=== PATIENT | female | born 1975 | race Caucasian/White ===

== ENCOUNTER 2016-03-22 12:50 | Outpatient (CLI) | payer BC | END 2016-03-22 12:51 | disposition home or self-care (01) | DX: R53.83 Other fatigue (principal); E10.65 Type 1 diabetes mellitus with hyperglycemia ==

== ENCOUNTER 2016-06-07 19:11 | Outpatient (CLI) | payer BC | END 2016-06-07 19:12 | disposition home or self-care (01) | DX: R10.2 Pelvic and perineal pain (principal) ==

== ENCOUNTER 2016-06-21 08:54 | Outpatient (CLI) | payer BC | END 2016-06-21 08:55 | disposition home or self-care (01) | DX: E10.69 Type 1 diabetes mellitus with other specified complication (principal) ==

== ENCOUNTER 2016-06-21 09:08 | Outpatient (CLI) | payer BC | END 2016-06-21 09:09 | disposition home or self-care (01) | LOC: RT 09:08 | PROVIDERS: ATTEND Obstetrics & Gynecology | DX: Z01.810 Encounter for preprocedural cardiovascular examination (principal); E10.69 Type 1 diabetes mellitus with other specified complication | CPT/HCPCS: 93005 ==

== ENCOUNTER 2016-09-13 15:13 | Outpatient (CLI) | payer BC | END 2016-09-13 15:14 | disposition home or self-care (01) | LOC: LAB.R 15:13 | PROVIDERS: ATTEND Obstetrics & Gynecology | DX: Z11.3 Encounter for screening for infections with a predominantly sexual mode of transmission (principal) | CPT/HCPCS: 87491; 87591 ==

== ENCOUNTER 2016-10-23 12:39 | Outpatient (CLI) | payer BC ==
[2016-10-23 13:44] LABS: BASOPHILS # (AUTO) 0.1 10^3/uL (0.0-0.1); BASOPHILS % (AUTO) 0.8 %; EOSINOPHILS # (AUTO) 0.1 10^3/uL (0.0-0.7); EOSINOPHILS % (AUTO) 0.7 %; HCT - HEMATOCRIT 40.6 % (37.0-47.0); HGB - HEMOGLOBIN 14.1 g/dL (12.0-16.0); LYMPHOCYTES % (AUTO) 13.9 %; MEAN CORPUSCULAR HEMOGLOBIN 32.6 pg (27.0-31.0); MEAN CORPUSCULAR HGB CONC 34.7 g/dL (32.0-36.0); MEAN PLATELET VOLUME 8.8 fL (7.9-10.8); MONOCYTES # (AUTO) 0.6 10^3/uL (0.0-1.0); MONOCYTES % (AUTO) 7.6 %; NEUTROPHILS # (AUTO) 5.7 10^3/uL (1.5-6.6); NUCLEATED RED BLOOD CELLS AUTO 0.1 /100WBC; RED BLOOD COUNT 4.32 10^6/uL (4.20-5.40); RED CELL DISTRIBUTION WIDTH 12.3 % (12.0-15.0); UNCORRECTED WHITE BLOOD COUNT 7.4 x10^3/uL; WHITE BLOOD COUNT 7.4 x10^3/uL (4.8-10.8)
[2016-10-23 13:47] LABS: ALBUMIN/GLOBULIN RATIO 1.4 (1.0-2.2); BILIRUBIN,TOTAL 0.6 mg/dL (0.2-1.0); CALCIUM 9.1 mg/dL (8.5-10.3); CREATININE 0.6 mg/dL (0.4-1.0); POTASSIUM 3.9 mmol/L (3.5-5.0); TOTAL PROTEIN 7.8 g/dL (6.7-8.2)
[2016-10-23 13:55] LABS: HEMOGLOBIN A1C 0.78 g/dL
== END 2016-10-23 12:40 | disposition home or self-care (01) ==
LOC: LAB 12:39
PROVIDERS: ATTEND Obstetrics & Gynecology
DX: Z01.812 Encounter for preprocedural laboratory examination (principal); N80.9 Endometriosis, unspecified; D21.9 Benign neoplasm of connective and other soft tissue, unspecified
CPT/HCPCS: 36415; 80053; 83036; 85025; 86850; 86900; 86901

== ENCOUNTER 2016-10-25 06:20 | Observation (INO) | payer BC ==
--- NOTE | 2016-10-23 13:01 | PREOP HISTORY & PHYSICAL ---
DATE OF ADMISSION/SURGERY: IDENTIFICATION: Patient is a 41-year-old G0, P0 female who presents with a long history of pelvic pain. She has undergone 3 laparoscopies, the 1st at 19 years of age. She was diagnosed with pelvic endometriosis made at that time. She had a 2nd diagnostic laparoscopy, at which time she had fulguration of endometriosis on the uterus. She states her pain is continually roughly about 3/ 10, but it is worse with her menses. She has need to utilize narcotic pain control at that particular time. She had been tried on control pills without success. She was also tried on continuous control pills and continuous to have difficulty. At this particular time, she is requesting hysterectomy. She is aware that should her uterus be removed that she would never be able to have children again. She does have a longstanding history of diabetes. Her hemoglobin A1c's have all been in the good range. PAST MEDICAL HISTORY: Type 1 diabetes with a 20 year history. She is currently utilizing an insulin pump. SURGICAL HISTORY: Laparoscopy x3. She has also had left knee surgery, as well as 3 oral surgeries. ALLERGIES: HYROCODONE THE PATIENT HAS ITCHING, BUT DENIES ANY REACTION SUCH HIVES OR RASH OR DIFFICULTY BREATHING. CURRENT MEDICATIONS 1. Patient is currently on an insulin pump and receives a basal rate of 1.15 units per hour. This is roughly 27.6 units per day. She utilizes boluses of anywhere from 8-10 units with her meals. 2. Zoloft 50 mg. 3. Propranolol 10 mg p.r.n. anxiety. 4. As well as continuous control pills. HABITS: The patient denies use of tobacco or street or addictive drugs. Does drink alcohol on a daily basis. She has 3 shots of tequila. She states this is secondary to her pain. 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 She is , lives with her spouse. FAMILY HISTORY: Positive for father with Sjogren disease. Mother who had breast cancer. REVIEW OF SYSTEMS Negative at this time. She denies any change in vision, hearing, sense of smell or taste, chronic cough, sputum production, shortness of breath. Denies any rapid heartbeat, swelling of the ankles or chest pain. She was having nausea and vomiting but denies any joint pain, muscle weakness, seizures. PHYSICAL EXAMINATION GENERAL: Patient is a well-developed, well-nourished white female. She is no acute distress at this time. HEENT: Pupils are equal and round. The extraocular muscles are intact. The thyroid is not palpably enlarged. The mouth is clear. There is no evidence of any scleral icterus. She shows signs in her face of recently having had lazer treatment. HEART: Regular rate and rhythm without murmurs. LUNGS: Duenas are clear without rales or wheezes. BACK: No spine or CVA tenderness. ABDOMEN: Shows some mild tenderness in the pelvic area. There is evidence of previous laparoscopies at this time. PELVIC: Deferred. The previous pelvic examination showed tenderness to the uterus. DIAGNOSTIC DATA: She has recently had an ultrasound, which shows a small uterus , which is roughly 5 cm in size. IMPRESSION 1. Dysmenorrhea. 2. Pelvic pain. 3. Pelvic endometriosis. 4. insulin-dependent diabetes. PLAN: At this particular time, we will schedule patient for a laparoscopic hysterectomy. The possibility of trying to close laparoscopically will be decided at time of procedure. The alternatives would be closing the vaginal cuff from below. We will remove the tubes as well as the left ovary. Risks and benefits have been explained to the patient including those, but not limited to bleeding, infection, injury to pelvic organs, which include the bowel, bladder, and ureters, as well as ovaries. She is aware of the potential for DVT with PE, as well as postop adhesions, which could cause pain, bowel obstruction. JOB #: [id number] EXT JOB #:[id number] GARO
[2016-10-25] MEDS ORDERED: ceFAZolin 2 GM/50 ML 50 ML IV ONE (06:35)
[2016-10-25 06:49] LABS: HCG UR QUAL NEGATIVE
[2016-10-25] MEDS ORDERED: LACTATED RINGERS 1,000 ML IV ONE (07:15)
[2016-10-25] MEDS ORDERED: NEOSTIGMINE 1 MG/1 ML 10 ML MDV IVP ONE (07:30)
[2016-10-25] MEDS ORDERED: LIDOCAINE-MPF 2% 5 ML VIAL IM ONE (07:30)
[2016-10-25] MEDS ORDERED: METOCLOPRAMIDE 10 MG/2 ML VIAL IVP ONE (07:30)
[2016-10-25] MEDS ORDERED: METOPROLOL 5 MG/5 ML VIAL IVP ONE (07:30)
[2016-10-25] MEDS ORDERED: PROPOFOL 200 MG/20 ML VIAL IVP ONE (07:30)
[2016-10-25] MEDS ORDERED: KETAMINE 500 MG/10 ML VIAL IVP ONE (07:30)
[2016-10-25] MEDS ORDERED: GLYCOPYRROLATE 1 MG/5 ML VIAL IVP ONE (07:30)
[2016-10-25] MEDS ORDERED: ACETAMINOPHEN 1,000 MG/100 ML 100 ML IV ONE (07:30)
[2016-10-25] MEDS ORDERED: MIDAZOLAM 2 MG/2 ML VIAL IVP ONE (07:30)
[2016-10-25] MEDS ORDERED: ONDANSETRON 4 MG/2 ML VIAL IVP ONE (07:30)
[2016-10-25] MEDS ORDERED: ROCURONIUM 50 MG/5 ML VIAL IVP ONE (07:30)
[2016-10-25] MEDS ORDERED: HYDROmorphone 1 MG/ML SYRINGE IVP ONE (07:30)
[2016-10-25] MEDS ORDERED: raNITIdine INJ 25 MG/ML VIAL IV ONE (07:30)
[2016-10-25] MEDS ORDERED: fentaNYL 100 MCG/2 ML VIAL IVP ONE (07:30)
[2016-10-25] MEDS ORDERED: SCOPOLAMINE PATCH TOP ONE (07:32)
[2016-10-25] MEDS ORDERED: BUPIVACAINE 0.25%-EPI 1:200000 PF 10 ML VIAL SUBQ ONE ×2 (08:10)
[2016-10-25] MEDS ORDERED: INSULIN REGULAR HUMAN 100 UNIT/1 ML 10 ML MDV ONE (08:51)
[2016-10-25] MEDS ORDERED: diphenhydrAMINE INJ 50 MG/ML VIAL ONE (10:26)
--- NOTE | 2016-10-25 10:32 | OPERATIVE REPORT ---
Operative Report - General Procedure Date: 10/25/16 Planned Procedure: LAVH with BS and LSO Pre-Op Diagnosis: Pelvic pain, Dysmenorrhea, Pelvic endometriosis, Type I DM Procedure Performed: Same - Procedure Note Primary Surgeon: Michael Ordoñez MD Secondary Surgeon: Izzy Ridley DO Anesthesia Technique: General ET tube IV Fluids (mL): 1,000 Estimated Blood Loss (mL): 5 Urine Output (mL): 300
[2016-10-25] MEDS ORDERED: LORazepam 2 MG/ML SYRINGE IVP PRN (10:35)
[2016-10-25] MEDS ORDERED: ONDANSETRON 4 MG/2 ML VIAL IVP PRN (10:35)
[2016-10-25] MEDS ORDERED: LACTATED RINGERS 1,000 ML IV SCH (11:00)
[2016-10-25] MEDS ORDERED: PROPRANOLOL 10 MG TABLET PO SCH (11:00)
[2016-10-25] MEDS ORDERED: SODIUM CHLORIDE 0.9% 2,000 ML IV SCH (11:00)
[2016-10-25 11:15] LABS: BASOPHILS % (AUTO) 0.5 %; EOSINOPHILS % (AUTO) 0.1 %; HCT - HEMATOCRIT 37.7 % (37.0-47.0); HGB - HEMOGLOBIN 13.1 g/dL (12.0-16.0); LYMPHOCYTES # (AUTO) 0.5 10^3/uL (1.5-3.5); MEAN CORPUSCULAR HEMOGLOBIN 32.7 pg (27.0-31.0); MEAN CORPUSCULAR HGB CONC 34.7 g/dL (32.0-36.0); MEAN CORPUSCULAR VOLUME 94.3 fL (81.0-99.0); MEAN PLATELET VOLUME 8.5 fL (7.9-10.8); MONOCYTES # (AUTO) 0.4 10^3/uL (0.0-1.0); NEUTROPHILS # (AUTO) 9.5 10^3/uL (1.5-6.6); NEUTROPHILS % (AUTO) 90.4 %; RED CELL DISTRIBUTION WIDTH 12.2 % (12.0-15.0); UNCORRECTED WHITE BLOOD COUNT 10.5 x10^3/uL; WHITE BLOOD COUNT 10.5 x10^3/uL (4.8-10.8)
[2016-10-25 11:28] LABS: ALBUMIN/GLOBULIN RATIO 1.4 (1.0-2.2); BILIRUBIN,TOTAL 0.4 mg/dL (0.2-1.0); CALCIUM 8.3 mg/dL (8.5-10.3); CREATININE 0.7 mg/dL (0.4-1.0); MAGNESIUM 1.5 mg/dL (1.7-2.8); POTASSIUM 3.6 mmol/L (3.5-5.0)
[2016-10-25] MEDS: HYDROmorphone 1 MG/ML SYRINGE IVP PRN ×4 (11:53→22:30)
--- NOTE | 2016-10-25 11:53 | OPERATIVE REPORT ---
DATE OF SURGERY: 10/25/2016 00:00:00 PREOPERATIVE DIAGNOSES 1. Pelvic pain. 2. Pelvic endometriosis. 3. Dysmenorrhea. 4. Insulin-dependent diabetes. POSTOPERATIVE DIAGNOSES 1. Pelvic pain. 2. Pelvic endometriosis. 3. Dysmenorrhea. 4. Insulin-dependent diabetes. NAME OF PROCEDURE: Laparoscopically assisted vaginal hysterectomy with bilateral salpingectomy and left oophorectomy, as well as fulguration of pelvic endometriotic implants. SURGEON: Michael Ordoñez MD. FRICTION PAINT MACHINE TENDER: Dr. Jolly Ridley. ANESTHESIA: General via endotracheal tube. FINDINGS: Normal pelvis with the exception of the endometriotic implants in the anterior abdominal wall, as well as the cul-de-sac of Arnold. There are adhesions of the colon to the left side of the pelvis. ESTIMATED BLOOD LOSS: 5 mL. INTRAVENOUS FLUIDS: 1000 mL. URINE OUTPUT: 300 mL. PROCEDURE: Following adequate endotracheal anesthesia, the patient was placed in the dorsal lithotomy position in [facility]. A timeout was performed, which the patient was identified, possible concerns, as well as the procedure. She was then prepped and draped in the usual fashion. A speculum was placed in the vagina. Cervix visualized, grasped with single-toothed tenaculum anteriorly. The cervix was then dilated up to a size 8 mm dilator. The uterus was sounded and noted to be 8 cm retroverted. A [employer] cervical manipulator was placed in the posterior orientation and the green cup was placed in the fornices and then the blue cup was placed afterwards. At this point, the armored machine operator's gloves were changed and a stab wound was made in the subumbilical area following local anesthesia with 0.25% Marcaine with epinephrine. The trocar was placed in single pass under direct visualization. CO2 was then used to insufflate the abdominal cavity. There were 2 additional ports placed, both in the left and the right lower quadrants. These were done after local anesthesia with 0.25% Marcaine, as well as a skin incision with a #11 blade. At this point, the pelvis was thoroughly inspected. The patient was placed in Trendelenburg. The uterus was manipulated and photographs were taken. The colen was noted to be somewhat adhered to the left hand side. The LigaSure was then utilized to cauterize and transect the mesosalpinx on the right hand side. This was carried all the way to the cornu and then across the round ligament and down the broad ligament on the right hand side. The anterior leaf of the broad ligament was entered and then this was carried across the lower uterine segment. The LigaSure was utilized all the way to the uterine vessels. Care was taken to inspect the ureters to make sure this was clear of the ureters. The left hand side tube was then grasped and then the infundibulopelvic ligament was cauterized and transected utilizing LigaSure. The large bowel was noted to be adherent and somewhat in the way on the left hand side, so its attachments were taken down with the LigaSure. Care was taken to stay as far away from the bowel as possible. The broad ligament on the left hand side was then grasped, cauterized, and transected with the LigaSure. This was done all the way down to the internal os of the cervix. The bladder flap was then pushed down and the uterine vessels were cauterized and transected utilizing the LigaSure. At this point, the VCare was noted to be well located in the anterior fornix. Then, the Harmonic scalpel was utilized to transect the cervix from the apex of vagina. Care was taken to try and keep this as high in the vagina as possible to minimize any risk of vaginal shortening. There was evidence of good hemostasis. The uterus was then withdrawn into the vagina. The cuff was noted to show no bleeding at this time. Then, attention was changed to the vagina. A speculum was placed. Following this, a weighted speculum, the apex of vagina was grasped using long Allis both anterior and posteriorly. This was then closed using [id number] of 0 Vicryl until the apexes of the vagina were totally closed. I injected 10 mL of 0.25% Marcaine with epinephrine in both uterosacral ligaments to decrease pain needs. There was evidence of good hemostasis. The armored machine operator's gloves were changed. At this point, the laparoscope was reintroduced. There was evidence of good hemostasis. No bleeding was noted from the vaginal cuff or the uterine attachments. Electrocautery was then used to fulgurate what appeared to be endometriosis in the cul-de-sac, the anterior abdominal wall, as well as the left side of the pelvis. There was no evidence of bleeding, so the left and right lower quadrant trocars were removed under direct visualization, and the CO2 was allowed to escape. At this point, the laparoscopic incision was then closed utilizing 4-0 Monocryl and then Dermabond was used for final closure. The patient tolerated the procedure well and was taken to recovery in stable condition. SPONGE AND NEEDLE COUNTS: Correct. JOB #: [id number] EXT JOB #:[id number]
[2016-10-25] MEDS ORDERED: SODIUM CHLORIDE FLUSH 0.9% 10 ML SYRINGE IVP ONE ×8 (11:54→22:33)
[2016-10-25] MEDS ORDERED: INSULIN ASPART 300 UNIT/3 ML PEN SUBQ SCH (12:00)
[2016-10-25] MEDS: ACETAMINOPHEN 500 MG TABLET PO SCH ×2 (12:13→18:34)
[2016-10-25] MEDS: KETOROLAC 30 MG/ML VIAL IVP SCH ×3 (12:13→22:07)
[2016-10-25] MEDS ORDERED: MAGNESIUM SULFATE 2 GRAM 50 ML IV ONE (12:14)
[2016-10-25] MEDS ORDERED: DEXTROSE 50% ABBOJECT 25 GM/50 ML SYRINGE ONE (13:08)
[2016-10-25] MEDS: LACTATED RINGERS 1,000 ML IV SCH ×2 (13:31→23:44)
[2016-10-25] MEDS: oxyCODONE 5 MG TABLET PO PRN ×3 (13:34→21:53)
[2016-10-25] MEDS ORDERED: DEXTROSE 50% ABBOJECT 25 GM/50 ML SYRINGE IVP SCH (14:00)
[2016-10-25] MEDS: SIMETHICONE CHEW 80 MG TABLET PO SCH ×2 (14:08→20:40)
[2016-10-25] MEDS ORDERED: DEXTROSE 5% 500 ML IV ONE (16:34)
[2016-10-25] MEDS ORDERED: DEXTROSE 5% 1,000 ML IV SCH (18:00)
[2016-10-25] MEDS: DEXTROSE 5% 1,000 ML IV SCH ×2 (18:35→22:31)
[2016-10-25] MEDS: PROPRANOLOL 10 MG TABLET PO SCH (20:40)
[2016-10-25] MEDS: DOCUSATE SODIUM 100 MG CAPSULE PO SCH (20:40)
[2016-10-25] MEDS: INSULIN ASPART 300 UNIT/3 ML PEN SUBQ SCH (20:41)
[2016-10-26] MEDS: oxyCODONE 5 MG TABLET PO PRN ×2 (01:47→06:38)
[2016-10-26] MEDS: ACETAMINOPHEN 500 MG TABLET PO SCH ×2 (02:59→13:54)
[2016-10-26] MEDS: HYDROmorphone 1 MG/ML SYRINGE IVP PRN ×2 (03:02→08:11)
--- NOTE | 2016-10-26 03:31 | CONSULTATION NOTE ---
DATE OF CONSULTATION: 10/25/2016 00:00:00 HISTORY OF PRESENT ILLNESS: This is a 41-year-old white female with history of insulin-dependent diabetes on an insulin pump. She has had diabetes for 20 years. She claims there are no complications of diabetes such as retinopathy or renal failure. The patient has a history of endometriosis with prior surgical and hormonal management for irregular menses and pain. The patient was scheduled for an elective hysterectomy for management of her endometriosis. Preoperatively, she underwent clearance by her primary care doctor for an "abnormal EKG" and the patient was cleared for the elective surgery, which she had earlier today. In the operating room and postoperatively, her glucose was in the 200 range and she received subcutaneous doses of regular insulin, 10 units each time for coverage. In addition to this, she was also maintained on her insulin pump. According to the patient, this was advised by the anesthesiologist. The medical consult was requested for further management of her diabetes. The patient describes abdominal and pelvic pain currently, which is moderate and she has an ice pack over the pelvis. She also describes feeling thirsty and lethargic and just had several fingerstick glucose checks that were 100 and then 58. The patient has taken orange juice p.o. in order to prevent hypoglycemia and she feels "bloated." REVIEW OF SYSTEMS: She denies any cardiac history and has had no cardiac tests. She underwent an EKG with her primary care doctor, which was read as within normal limits, and in comparison the EKG done at this location preoperatively had shown QS waves in V1 through V2 and the computer reading was that of possible anteroseptal PR. All other organ review of systems is negative. The patient is a nonsmoker, drinks very rare alcohol. Denies any illicit drug use. She lives with her , who is at her bedside currently. ALLERGIES 1. ADHESIVE TAPE. 2. HYDROCODONE (VICODIN GAVE HER AN ITCHY RASH). MEDICATIONS Prior to admission were 1. Insulin pump subcutaneously. 2. Zoloft 50 mg p.o. daily. 3. Propranolol 10 mg p.o. p.r.n. anxiety. 4. Estradiol for control. FAMILY HISTORY: Positive for breast cancer in the mother and Sjogren syndrome in the father. PHYSICAL EXAMINATION GENERAL: Reveals a white female who appears in mild distress from pain. Her skin is warm and dry. She is alert and oriented x3. VITAL SIGNS: Blood pressure 140/80, heart rate 90-99 in sinus rhythm. She is afebrile. HEENT: Unremarkable with moist mucous membranes. NECK: Shows no JVD at a 30 degree upright angle. No lymph nodes. No thyromegaly. CHEST: Clear at the anterior bases. HEART: Sounds are normal. No audible murmur. ABDOMEN: Soft. It is tender to light palpation and she is only several hours postop. EXTREMITIES: Legs show no clubbing, cyanosis, or edema. LABORATORY: There were no preoperative labs done; however, I have ordered some as she was leaving the recovery room and these showed normal electrolytes, glucose of 187, magnesium of 1.5. Normal liver test. White blood count 10.5 with neutrophils of 9.5%. EKG is normal sinus rhythm and within normal limits (there are no QS waves on today's EKG in V1 and V2). IMPRESSION 1. Insulin-dependent diabetes. Her insulin pump will continue and I will discontinue the sliding scale insulin because of low levels and she will need parenteral glucose administrated. Diabetic diet will be ordered. 2. Surgery, several hours postop. Pain medications are per the manager floral. 3. Endometriosis. Plan as above. 4. Abnormal EKG suspected in the preop period. This was likely due to lead placement, as there appears to be no abnormality on the EKG done today and at her primary care doctor's office, which was approximately 2 weeks ago. JOB #: [id number] EXT JOB #:[id number] GARO
[2016-10-26] MEDS: KETOROLAC 30 MG/ML VIAL IVP SCH ×2 (05:04→11:56)
[2016-10-26] MEDS: SIMETHICONE CHEW 80 MG TABLET PO SCH (05:05)
[2016-10-26] MEDS ORDERED: SODIUM CHLORIDE FLUSH 0.9% 10 ML SYRINGE IVP ONE ×4 (08:10→12:33)
[2016-10-26] MEDS ORDERED: diphenhydrAMINE INJ 50 MG/ML VIAL IVP PRN (08:27)
[2016-10-26 08:30] LABS: BASOPHILS # (AUTO) 0.1 10^3/uL (0.0-0.1); BASOPHILS % (AUTO) 0.7 %; EOSINOPHILS # (AUTO) 0.2 10^3/uL (0.0-0.7); EOSINOPHILS % (AUTO) 1.4 %; HCT - HEMATOCRIT 37.6 % (37.0-47.0); HGB - HEMOGLOBIN 12.7 g/dL (12.0-16.0); LYMPHOCYTES # (AUTO) 0.9 10^3/uL (1.5-3.5); LYMPHOCYTES % (AUTO) 7.6 %; MEAN CORPUSCULAR HEMOGLOBIN 32.3 pg (27.0-31.0); MEAN CORPUSCULAR HGB CONC 33.9 g/dL (32.0-36.0); MEAN CORPUSCULAR VOLUME 95.4 fL (81.0-99.0); MEAN PLATELET VOLUME 8.8 fL (7.9-10.8); MONOCYTES # (AUTO) 1.2 10^3/uL (0.0-1.0); MONOCYTES % (AUTO) 9.5 %; NEUTROPHILS # (AUTO) 10.1 10^3/uL (1.5-6.6); NEUTROPHILS % (AUTO) 80.8 %; RED BLOOD COUNT 3.94 10^6/uL (4.20-5.40); RED CELL DISTRIBUTION WIDTH 12.3 % (12.0-15.0); UNCORRECTED WHITE BLOOD COUNT 12.5 x10^3/uL; WHITE BLOOD COUNT 12.5 x10^3/uL (4.8-10.8)
[2016-10-26] MEDS: INSULIN ASPART 300 UNIT/3 ML PEN SUBQ SCH ×2 (08:32→13:55)
[2016-10-26 08:35] LABS: CREATININE 0.6 mg/dL (0.4-1.0); POTASSIUM 3.8 mmol/L (3.5-5.0)
[2016-10-26] MEDS ORDERED: FLUCONAZOLE 100 MG TABLET PO SCH (09:00)
[2016-10-26] MEDS ORDERED: SERTRALINE 25 MG TABLET PO SCH (09:00)
[2016-10-26] MEDS ORDERED: SERTRALINE 50 MG TABLET PO SCH (09:00)
[2016-10-26] MEDS ORDERED: traZODone 50 MG TABLET PO SCH (09:00)
[2016-10-26] MEDS ORDERED: NORGESTREL ETHINYL ESTRADIOL PO SCH (09:00)
[2016-10-26] MEDS: PROPRANOLOL 10 MG TABLET PO SCH (10:20)
[2016-10-26] MEDS: DOCUSATE SODIUM 100 MG CAPSULE PO SCH (10:20)
--- NOTE | 2016-10-26 10:47 | PROVIDER PROGRESS NOTE ---
Subjective - General Admit Date: 10/25/16 Procedure Date: 10/25/16 Post Op Days: 1 Procedure Performed: JOSE with BS LSO - Review of Systems Wound/Incisions: positive: Healing well, Dressing dry and intact HEENT: positive: Dysphasia Gastrointestinal: positive: Nausea, Vomiting, Difficulty swallowing - Other Other Information/Narrative: 1. Pt blood sugars thru the night ran low 100's this AM increased to 260's. Her D5w was adjusted now she is runnig 170. 2. Pt developed Nausea with vomiting and throat tightness this Am following eating breakfast of pancakes. She gives a Hx of egg white allergy. She is able to eat eggs in the past. She vanessa any relationship to her oxycodone consumption. 3. Pain control. pt is taking percocet 10/325 with acquit results. pt to be sent home with Percocet 5/325. Pt d Objective - Patient Data Reviewed Vital Signs: Yes Vital Signs: Vital Signs x48h Temp Pulse Resp BP Pulse Ox 10/26/16 08:02 36.4 C L 65 18 125/52 L 96 10/26/16 05:16 36 C L 73 18 125/64 97 10/26/16 03:00 36.3 C L 65 18 123/76 99 Weight: Weight 10/24/16 10/25/16 10/26/16 23:59 23:59 23:59 Weight (kg) 74.2 kg Intake & Output: Intake and Output Totals x24h 10/24/16 10/25/16 10/26/16 23:59 23:59 23:59 Intake Total 2257 1331 Output Total 3200 2300 Balance -943 -649 - Lab Results Lab Results: 10/26/16 08:15 10/26/16 08:15 Other Lab Results: Lab Results x24hrs 10/26/16 10/26/16 10/25/16 Range/Units 08:15 08:15 13:22 WBC 12.5 H (4.8-10.8) x10^3/uL RBC 3.94 L (4.20-5.40) 10^6/uL Hgb 12.7 (12.0-16.0) g/dL Hct 37.6 (37.0-47.0) % MCV 95.4 (81.0-99.0) fL MCH 32.3 H (27.0-31.0) pg MCHC 33.9 (32.0-36.0) g/dL RDW 12.3 (12.0-15.0) % Plt Count 225 (130-450) 10^3/uL MPV 8.8 (7.9-10.8) fL Neut # 10.1 H (1.5-6.6) 10^3/uL Lymph # 0.9 L (1.5-3.5) 10^3/uL [place] # 1.2 H (0.0-1.0) 10^3/uL Eos # 0.2 (0.0-0.7) 10^3/uL Baso # 0.1 (0.0-0.1) 10^3/uL Absolute Nucleated RBC 0.00 x10^3/uL Nucleated RBCs 0.0 /100WBC Sodium 132 L (135-145) mmol/L Potassium 3.8 (3.5-5.0) mmol/L Chloride 99 L (101-111) mmol/L Carbon Dioxide 23 (21-32) mmol/L Anion Gap 10.0 (6-13) BUN 6 (6-20) mg/dL Creatinine 0.6 (0.4-1.0) mg/dL Estimated GFR (MDRD) 111 (>89) Glucose 269 H (70-100) mg/dL POC Whole Bld Glucose 208 H (70 - 100) mg/dL Calcium 8.0 L (8.5-10.3) mg/dL Magnesium 2.0 (1.7-2.8) mg/dL Total Bilirubin (0.2-1.0) mg/dL AST (10-42) IU/L ALT (10-60) IU/L Alkaline Phosphatase (42-121) IU/L Total Protein (6.7-8.2) g/dL Albumin (3.2-5.5) g/dL Globulin (2.1-4.2) g/dL Albumin/Globulin Ratio (1.0-2.2) 10/25/16 10/25/16 10/25/16 Range/Units 12:35 12:04 11:25 WBC (4.8-10.8) x10^3/uL RBC (4.20-5.40) 10^6/uL Hgb (12.0-16.0) g/dL Hct (37.0-47.0) % MCV (81.0-99.0) fL MCH (27.0-31.0) pg MCHC (32.0-36.0) g/dL RDW (12.0-15.0) % Plt Count (130-450) 10^3/uL MPV (7.9-10.8) fL Neut # (1.5-6.6) 10^3/uL Lymph # (1.5-3.5) 10^3/uL [place] # (0.0-1.0) 10^3/uL Eos # (0.0-0.7) 10^3/uL Baso # (0.0-0.1) 10^3/uL Absolute Nucleated RBC x10^3/uL Nucleated RBCs /100WBC Sodium (135-145) mmol/L Potassium (3.5-5.0) mmol/L Chloride (101-111) mmol/L Carbon Dioxide (21-32) mmol/L Anion Gap (6-13) BUN (6-20) mg/dL Creatinine (0.4-1.0) mg/dL Estimated GFR (MDRD) (>89) Glucose (70-100) mg/dL POC Whole Bld Glucose 60 L* 106 H 167 H (70 - 100) mg/dL Calcium (8.5-10.3) mg/dL Magnesium (1.7-2.8) mg/dL Total Bilirubin (0.2-1.0) mg/dL AST (10-42) IU/L ALT (10-60) IU/L Alkaline Phosphatase (42-121) IU/L Total Protein (6.7-8.2) g/dL Albumin (3.2-5.5) g/dL Globulin (2.1-4.2) g/dL Albumin/Globulin Ratio (1.0-2.2) 10/25/16 10/25/16 Range/Units 11:07 11:07 WBC 10.5 (4.8-10.8) x10^3/uL RBC 4.00 L (4.20-5.40) 10^6/uL Hgb 13.1 (12.0-16.0) g/dL Hct 37.7 (37.0-47.0) % MCV 94.3 (81.0-99.0) fL MCH 32.7 H (27.0-31.0) pg MCHC 34.7 (32.0-36.0) g/dL RDW 12.2 (12.0-15.0) % Plt Count 264 (130-450) 10^3/uL MPV 8.5 (7.9-10.8) fL Neut # 9.5 H (1.5-6.6) 10^3/uL Lymph # 0.5 L (1.5-3.5) 10^3/uL [place] # 0.4 (0.0-1.0) 10^3/uL Eos # 0.0 (0.0-0.7) 10^3/uL Baso # 0.0 (0.0-0.1) 10^3/uL Absolute Nucleated RBC 0.00 x10^3/uL Nucleated RBCs 0.0 /100WBC Sodium 137 (135-145) mmol/L Potassium 3.6 (3.5-5.0) mmol/L Chloride 105 (101-111) mmol/L Carbon Dioxide 22 (21-32) mmol/L Anion Gap 10.0 (6-13) BUN 9 (6-20) mg/dL Creatinine 0.7 (0.4-1.0) mg/dL Estimated GFR (MDRD) 93 (>89) Glucose 187 H (70-100) mg/dL POC Whole Bld Glucose (70 - 100) mg/dL Calcium 8.3 L (8.5-10.3) mg/dL Magnesium 1.5 L (1.7-2.8) mg/dL Total Bilirubin 0.4 (0.2-1.0) mg/dL AST 34 (10-42) IU/L ALT 14 (10-60) IU/L Alkaline Phosphatase 43 (42-121) IU/L Total Protein 7.0 (6.7-8.2) g/dL Albumin 4.1 (3.2-5.5) g/dL Globulin 2.9 (2.1-4.2) g/dL Albumin/Globulin Ratio 1.4 (1.0-2.2) - Current Medications Current Medications: Current Medications Generic Name Dose Route Start Last Admin Trade Name Freq PRN Reason Stop Dose Admin Acetaminophen 1,000 mg 10/25/16 11:00 10/26/16 02:59 Tylenol PO 1,000 mg Q8H SYD Administration Diphenhydramine HCl 25 mg 10/26/16 08:27 10/26/16 08:42 Benadryl Inj IVP 25 mg Q6H PRN Administration Allergy Symptoms Docusate Sodium 100 mg 10/25/16 21:00 10/26/16 10:20 Colace 100mg Capsule PO 100 mg BID SYD Administration Hydromorphone HCl 1 mg 10/25/16 10:35 10/26/16 08:11 Dilaudid Inj IVP 1 mg Q3HR PRN Administration PAIN Lactated Ringer's 1,000 mls @ 100 mls/hr 10/25/16 14:00 10/25/16 23:44 Lr IV Not Given .Q10H SYD Dextrose 1,000 mls @ 75 mls/hr 10/25/16 19:00 10/25/16 22:31 D5w IV 75 mls/hr .[id number] SYD Administration Insulin Aspart 1 - 5 unit 10/25/16 21:00 10/26/16 08:32 Novolog SUBQ Not Given 0800,1200,1700,2100 [facility] Protocol Ketorolac Tromethamine 30 mg 10/25/16 11:00 10/26/16 05:04 Toradol Inj IVP 10/30/16 10:59 30 mg Q6H SYD Administration Lorazepam 2 mg 10/25/16 10:35 10/25/16 20:40 Ativan Inj IVP 2 mg Q3HR PRN Administration Anxiety Oxycodone HCl 10 mg 10/25/16 10:35 10/26/16 06:38 Roxicodone PO 10 mg Q4HR PRN Administration PAIN Propranolol HCl 10 mg 10/25/16 21:00 10/26/16 10:20 Inderal PO 10 mg BID SYD Administration Ranitidine HCl 150 mg 10/25/16 12:00 10/26/16 10:20 Zantac PO 150 mg DAILY SYD Administration Sertraline HCl 50 mg 10/26/16 09:00 10/26/16 10:20 Zoloft PO 50 mg DAILY SYD Administration Simethicone 80 mg 10/25/16 14:00 10/26/16 05:05 Mylicon PO 80 mg TID SYD Administration - Physical Exam Wound/Incisions: positive: Healing well, No drainage General Appearance: positive: Alert, Mild distress (Pt just had emisis.) Respiratory: positive: Chest non-tender, No respiratory distress, Breath sounds nml Cardiovascular: positive: Regular rate & rhythm, No murmur, No gallop, Irregularly irregular Abdomen: positive: Nml bowel sounds, No distention, Tenderness (mild) Back: positive: Nml inspection. negative: CVA tenderness (R), CVA tenderness (L ) Skin: positive: Color nml, No rash, Warm, Dry Extremities: negative: Calf tenderness, Everett's sign/cords Neurologic/Psychiatric: positive: Oriented x3 Impression/Plan - Problem List Problem List: 1. S/P LAVH with BS and LSO. 2. Pain control moderate control. Pt is not narcotic niave. will need greater dosed than usual. 3. Type 1 DM control adiquit at this time. Plan benadryl 25 mg q6. [place] out.
[2016-10-26] MEDS ORDERED: PROMETHAZINE INJ 12.5 MG in SODIUM CHLORIDE 0.9% 50 ML IV PRN (11:14)
[2016-10-26 13:07] VITALS: BP 152/78
[2016-10-26] MEDS: LACTATED RINGERS 1,000 ML IV SCH (13:53)
--- NOTE | 2016-10-26 14:08 | Discharge Plan ---
Discharge Plan Disposition: 01 Home, Self Care Condition: Good Diet: Diabetic Activity Restrictions: pelvic rest 6 weeks Shower Restrictions: No Driving Restrictions: Yes (2 weeks) Weight Bearing: Full Weight No Smoking: If you smoke, Please STOP! Call for help.
== END 2016-10-26 14:25 | disposition home or self-care (01) ==
LOC: SDS 06:20 → OBS 10:35
PROVIDERS: ADMIT Obstetrics & Gynecology; ATTEND Obstetrics & Gynecology
PROC: 0UTC7ZZ Resection of Cervix, Via Natural or Artificial Opening (ICD-10-PCS; 2016-10-25)
PROC: 0UT1FZZ Resection of Left Ovary, Via Natural or Artificial Opening With Percutaneous Endoscopic Assistance (ICD-10-PCS; 2016-10-25)
PROC: 0UT7FZZ Resection of Bilateral Fallopian Tubes, Via Natural or Artificial Opening With Percutaneous Endoscopic Assistance (ICD-10-PCS; 2016-10-25)
PROC: 0U5B4ZZ Destruction of Endometrium, Percutaneous Endoscopic Approach (ICD-10-PCS; 2016-10-25)
PROC: 0UT9FZZ Resection of Uterus, Via Natural or Artificial Opening With Percutaneous Endoscopic Assistance (ICD-10-PCS; principal; 2016-10-25 07:30)
DX: N80.3 Endometriosis of pelvic peritoneum (principal); N94.6 Dysmenorrhea, unspecified; K66.0 Peritoneal adhesions (postprocedural) (postinfection); E10.9 Type 1 diabetes mellitus without complications; R11.2 Nausea with vomiting, unspecified; F32.9 Major depressive disorder, single episode, unspecified; F41.9 Anxiety disorder, unspecified; Z79.4 Long term (current) use of insulin; Z96.41 Presence of insulin pump (external) (internal); Z79.3 Long term (current) use of hormonal contraceptives; Z91.012 Allergy to eggs
CPT/HCPCS: 36415; 58552; 58662; 80048; 80053; 81025; 83735; 85025; 93005; 99218; A9270; J0131; J0690; J1170; J1815; J2060; J3490; J7040; J7120; 83036

== ENCOUNTER 2018-11-09 11:21 | Outpatient (CLI) | payer BC | END 2018-11-09 11:22 | disposition short-term general hospital (02) | LOC: EMS 11:21 | PROVIDERS: ATTEND Surgery | DX: R73.09 Other abnormal glucose (principal); R11.2 Nausea with vomiting, unspecified | CPT/HCPCS: A0425; A0427 ==

== ENCOUNTER 2021-05-31 20:30 | Outpatient (CLI) | payer BC | END 2021-05-31 20:31 | disposition EMS.NT | LOC: EMS 20:30 | DX: R11.2 Nausea with vomiting, unspecified (principal) ==

== ENCOUNTER 2022-01-09 08:00 | Outpatient (CLI) | payer BC ==
[2022-01-09 21:45] LABS: BASOPHILS # (AUTO) 0.1 10^3/uL (0.0-0.1); BASOPHILS % (AUTO) 1.1 %; EOSINOPHILS # (AUTO) 0.1 10^3/uL (0.0-0.7); EOSINOPHILS % (AUTO) 1.7 %; HCT - HEMATOCRIT 42.9 % (37.0-47.0); HGB - HEMOGLOBIN 14.9 g/dL (12.0-16.0); LYMPHOCYTES # (AUTO) 2.3 10^3/uL (1.5-3.5); LYMPHOCYTES % (AUTO) 32.8 %; MEAN CORPUSCULAR HEMOGLOBIN 33.8 pg (27.0-31.0); MEAN CORPUSCULAR HGB CONC 34.7 g/dL (32.0-36.0); MEAN CORPUSCULAR VOLUME 97.3 fL (81.0-99.0); MEAN PLATELET VOLUME 12.2 fL (7.9-10.8); MONOCYTES # (AUTO) 0.8 10^3/uL (0.0-1.0); MONOCYTES % (AUTO) 10.8 %; NEUTROPHILS # (AUTO) 3.8 10^3/uL (1.5-6.6); NEUTROPHILS % (AUTO) 53.3 %; PLT - PLATELET COUNT 278 10^3/uL (130-450); RED BLOOD COUNT 4.41 10^6/uL (4.20-5.40); RED CELL DISTRIBUTION WIDTH 13.1 % (12.0-15.0); WHITE BLOOD COUNT 7.1 x10^3/uL (4.8-10.8)
== END 2022-01-09 23:59 | disposition home or self-care (01) ==
LOC: LAB.R 08:00
DX: D86.84 Sarcoid pyelonephritis (principal)
CPT/HCPCS: 80053; 85025; 85651; 86140

== ENCOUNTER 2022-03-13 15:47 | Outpatient (CLI) | payer BC ==
[2022-03-13 16:11] LABS: ALBUMIN/GLOBULIN RATIO 1.1 (1.0-2.2); BILIRUBIN,TOTAL 0.6 mg/dL (0.2-1.0); CALCIUM 9.2 mg/dL (8.5-10.3); CREATININE 0.8 mg/dL (0.4-1.0); POTASSIUM 3.8 mmol/L (3.5-5.0); TOTAL PROTEIN 7.7 g/dL (6.7-8.2)
[2022-03-13 16:37] LABS: BASOPHILS % (AUTO) 0.2 %; EOSINOPHILS % (AUTO) 0.3 %; HCT - HEMATOCRIT 43.1 % (37.0-47.0); HGB - HEMOGLOBIN 14.5 g/dL (12.0-16.0); LYMPHOCYTES # (AUTO) 2.5 10^3/uL (1.5-3.5); LYMPHOCYTES % (AUTO) 15.9 %; MEAN CORPUSCULAR HEMOGLOBIN 34.4 pg (27.0-31.0); MEAN CORPUSCULAR HGB CONC 33.6 g/dL (32.0-36.0); MEAN CORPUSCULAR VOLUME 102.4 fL (81.0-99.0); MEAN PLATELET VOLUME 11.6 fL (7.9-10.8); MONOCYTES # (AUTO) 1.1 10^3/uL (0.0-1.0); MONOCYTES % (AUTO) 7.1 %; NEUTROPHILS # (AUTO) 11.9 10^3/uL (1.5-6.6); NEUTROPHILS % (AUTO) 75.8 %; PLT - PLATELET COUNT 348 10^3/uL (130-450); RED BLOOD COUNT 4.21 10^6/uL (4.20-5.40); RED CELL DISTRIBUTION WIDTH 12.4 % (12.0-15.0); WHITE BLOOD COUNT 15.7 x10^3/uL (4.8-10.8)
== END 2022-03-13 15:48 | disposition home or self-care (01) ==
LOC: LAB.R 15:47
PROVIDERS: ATTEND Internal Medicine Rheumatology
DX: D86.84 Sarcoid pyelonephritis (principal)
CPT/HCPCS: 80053; 85025; 85651; 86140

== ENCOUNTER 2022-06-15 08:00 | Outpatient (CLI) | payer BC ==
[2022-06-15 20:26] LABS: ALBUMIN 4.3 g/dL (3.2-5.5); ALBUMIN/GLOBULIN RATIO 1.1 (1.0-2.2); BILIRUBIN,TOTAL 0.6 mg/dL (0.2-1.0); CALCIUM 9.7 mg/dL (8.5-10.3); CREATININE 0.6 mg/dL (0.4-1.0); CRP - C-REACTIVE PROTEIN 3.3 mg/dL (0-1.0); POTASSIUM 3.8 mmol/L (3.5-5.0); TOTAL PROTEIN 8.2 g/dL (6.7-8.2)
[2022-06-15 20:34] LABS: HGB - HEMOGLOBIN 15.5 g/dL (12.0-16.0); MEAN CORPUSCULAR VOLUME 94.3 fL (81.0-99.0); MEAN PLATELET VOLUME 11.2 fL (7.9-10.8); RED BLOOD COUNT 4.56 10^6/uL (4.20-5.40); WHITE BLOOD COUNT 7.7 x10^3/uL (4.8-10.8)
== END 2022-06-15 23:59 | disposition home or self-care (01) ==
LOC: LAB.R 08:00
PROVIDERS: ATTEND Internal Medicine Rheumatology
DX: D86.84 Sarcoid pyelonephritis (principal)
CPT/HCPCS: 80053; 85027; 85651; 86140

== ENCOUNTER 2022-10-18 10:07 | Emergency (ER) | payer BC ==
--- NOTE | 2022-10-18 10:16 | ED Physician Documentation ---
PD HPI NVD - Stated complaint Stated Complaint: N/V ABD/NECK PX, VERTIGO - History obtained from History obtained from: Patient - History of Present Illness Timing - onset: Last night (The patient had abrupt onset of nausea and vomiting last night and has persisted overnight. She states her insulin pump needle had been 10 was not delivering insulin appropriately. Her blood sugar went up to 400s. She replaced the apparatus and is now working well. Blood sugar to 158 at home.) Timing - details: Abrupt onset, Still present Associated symptoms: Abdominal pain (Upper abdominal pain with the vomiting. No tenderness or persistent pain.), Dizzy, Loss of appetite. No: Fever, Chest pain, Hematemesis Contributing factors: Diabetes. No: Sick contact, Bad food, Recent antibiotics Worsened by: Eating Similar symptoms before: Has not had sx before Recently seen: Not recently seen Review of Systems Constitutional: reports: Myalgias. denies: Fever, Chills Nose: denies: Rhinorrhea / runny nose, Congestion Throat: denies: Sore throat Respiratory: denies: Cough GI: reports: Nausea, Vomiting : denies: Dysuria Neurologic: reports: Generalized weakness. 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: Other HEENT: Other Derm: Other - Present Medications Home Medications: Ambulatory Orders Medication Instructions Recorded Confirmed Insulin Lispro [Humalog] See Protocol SUBQ DAILY 10/23/16 10/25/16 Propranolol HCl 10 mg PO DAILY 10/23/16 10/25/16 Sertraline [Zoloft] 50 mg PO DAILY 10/23/16 10/25/16 traZODone [Desyrel] 50 mg PO DAILY 10/23/16 10/25/16 oxyCODONE/ACET 5/325 Prepack 4 1 tab PO Q6H PRN 10/25/16 10/25/16 [PERCOCET 5 MG/325 MG Prepack 4] Ondansetron Odt [Zofran Odt] 4 mg TL Q6H PRN #10 tablet 03/05/22 predniSONE [Deltasone] 60 mg PO DAILY 7 Days #21 tablet 03/05/22 Ondansetron Odt [Zofran] 4 mg TL Q6H PRN #10 tablet 10/18/22 Promethazine Supp [Phenergan Supp] 25 mg FL Q6H PRN #4 supp 10/18/22 - Allergies Allergies/Adverse Reactions: Allergies Allergy/AdvReac Type Severity Reaction Status Date / Time adhesive AdvReac Rash Verified 10/18/22 10:26 hydrocodone bitartrate * AdvReac Itching Verified 10/18/22 10:26 [From Vicodin] PD ED PE NORMAL - Vitals Vital signs reviewed: Yes - General General: Alert and oriented X 3, Well developed/nourished, Other (holding emesis bag, some emesis on first arrival. ) - Neck Neck: Supple, no meningeal sign, No adenopathy - Cardiac Cardiac: No murmur. No: RRR (regular but tachycardic) - Respiratory Respiratory: Clear bilaterally - Abdomen Abdomen: Normal bowel sounds, Soft, Non distended, No organomegaly, Other (mild tenderness epigastric area. ) - Back Back: No CVA TTP - Derm Derm: Normal color, Warm and dry - Extremities Extremities: Normal ROM s pain Results - Vitals Vitals: Oxygen O2 Source Room air - Labs Labs: Laboratory Tests 10/18/22 10/18/22 10/18/22 10:19 10:33 10:33 WBC 19.9 H RBC 4.77 Hgb 16.5 H Hct 46.9 MCV 98.3 MCH 34.6 H MCHC 35.2 RDW 12.7 Plt Count 585 H MPV 10.0 Neut # (Auto) 16.7 H Lymph # (Auto) 1.5 [place] # (Auto) 1.4 H Eos # (Auto) 0.0 Baso # (Auto) 0.1 Absolute Nucleated RBC 0.00 Nucleated RBC % 0.0 Sodium 133 L Potassium 4.7 H Chloride 98 L Carbon Dioxide 13 L Anion Gap 22.0 H BUN 18 Creatinine 1.1 Estimated GFR (MDRD) 53 L Glucose 168 H POC Whole Bld Glucose 158 H Calcium 10.8 H Magnesium 2.0 Total Bilirubin 0.6 AST 19 ALT 19 Alkaline Phosphatase 120 Total Protein 10.1 H Albumin 5.7 H Globulin 4.4 H Albumin/Globulin Ratio 1.3 Lipase 63 PD Medical Decision Making - ED course Complexity details: re-evaluated patient (feeling better subequent to IV fluids and meds. Recheck abd with mild tender epigastric. No peritoneal signs. I considered but did not feel needed, imaging such as CT or US.), considered differential (presumeviral GE or food related. Her blood sugar had been elevated yesterday but is normal now, and does not seem like ketoacidosis. ), d/w patient ED course: Patient had repeated nausea and vomiting at home and was having some upper abdominal muscular tenderness. Palpation of the abdomen was not tender. She was given IV fluids and antiemetics and this provided improvement in her nausea. She is given a repeat dosing of antiemetic and more fluids and was feeling much improved. She was able to take fluids and crackers. Recheck of the abdomen still is not having any areas of tenderness. I did not feel we needed to undergo any scanning images etc. The patient was feeling improved enough to try heading home. I will send prescriptions to her pharmacy in [place]. Departure - Departure Disposition: 01 Home, Self Care Clinical Impression: Nausea and vomiting, Dehydration, Diabetes Condition: Stable Record reviewed to determine appropriate education?: Yes Instructions: ED Nausea Vomiting Prescriptions: Promethazine Supp [Phenergan Supp] 25 mg FL Q6H PRN #4 supp PRN Reason: Nausea / Vomiting Ondansetron Odt [Zofran] 4 mg TL Q6H PRN #10 tablet PRN Reason: Nausea / Vomiting Comments: Kulm food and small frequent fluids initially and progress intake as tolerated. Use ondansetron if needed for persistent nausea or promethazine suppositories if vomiting. Presumption would be that this is viral illness or potential food related. Commonly these will last for just a couple of days. Recheck if not improved well over the next day or 2. Return if worse. I sent your prescriptions to the [facility] in [place]. Forms: PCP List Discharge Date/Time: 10/18/22 14:27
[2022-10-18] MEDS ORDERED: SODIUM CHLORIDE 0.9% 2,000 ML IV STA (10:26)
[2022-10-18] MEDS ORDERED: PROCHLORPERAZINE 10 MG/2 ML VIAL IVP STA (10:27)
[2022-10-18 10:29] VITALS: O2SAT 100
[2022-10-18] MEDS ORDERED: KETOROLAC 15 MG/ML VIAL IVP STA (10:29)
[2022-10-18 10:45] LABS: BASOPHILS # (AUTO) 0.1 10^3/uL (0.0-0.1); BASOPHILS % (AUTO) 0.3 %; HCT - HEMATOCRIT 46.9 % (37.0-47.0); HGB - HEMOGLOBIN 16.5 g/dL (12.0-16.0); LYMPHOCYTES # (AUTO) 1.5 10^3/uL (1.5-3.5); LYMPHOCYTES % (AUTO) 7.6 %; MEAN CORPUSCULAR HEMOGLOBIN 34.6 pg (27.0-31.0); MEAN CORPUSCULAR HGB CONC 35.2 g/dL (32.0-36.0); MEAN CORPUSCULAR VOLUME 98.3 fL (81.0-99.0); MONOCYTES # (AUTO) 1.4 10^3/uL (0.0-1.0); MONOCYTES % (AUTO) 6.9 %; NEUTROPHILS # (AUTO) 16.7 10^3/uL (1.5-6.6); NEUTROPHILS % (AUTO) 84.1 %; PLT - PLATELET COUNT 585 10^3/uL (130-450); RED BLOOD COUNT 4.77 10^6/uL (4.20-5.40); RED CELL DISTRIBUTION WIDTH 12.7 % (12.0-15.0); WHITE BLOOD COUNT 19.9 x10^3/uL (4.8-10.8)
[2022-10-18 11:09] LABS: ALBUMIN 5.7 g/dL (3.2-5.5)
[2022-10-18 11:24] LABS: ALBUMIN/GLOBULIN RATIO 1.3 (1.0-2.2); BILIRUBIN,TOTAL 0.6 mg/dL (0.2-1.0); CALCIUM 10.8 mg/dL (8.5-10.3); CREATININE 1.1 mg/dL (0.6-1.3); POTASSIUM 4.7 mmol/L (3.5-4.5); TOTAL PROTEIN 10.1 g/dL (6.4-8.9)
[2022-10-18] MEDS ORDERED: ONDANSETRON 4 MG/2 ML VIAL IVP STA (12:59)
[2022-10-18] MEDS ORDERED: HYDROmorphone 0.5 MG/0.5 ML SYRINGE IVP STA (13:01)
[2022-10-18 14:33] VITALS: BP 150/88
== END 2022-10-18 14:27 | disposition home or self-care (01) ==
LOC: ED 10:07
DX: R11.2 Nausea with vomiting, unspecified (principal); E86.0 Dehydration; E10.9 Type 1 diabetes mellitus without complications; Z79.4 Long term (current) use of insulin
CPT/HCPCS: 36415; 80053; 83690; 83735; 85025; 96361; 96374; 96375; 99284; 99285; J1170

== ENCOUNTER 2023-02-06 08:00 | Outpatient (CLI) | payer BC ==
[2023-02-06 20:15] LABS: HCT - HEMATOCRIT 37.7 % (37.0-47.0); HGB - HEMOGLOBIN 14.1 g/dL (12.0-16.0); MEAN CORPUSCULAR HEMOGLOBIN 39.8 pg (27.0-31.0); MEAN CORPUSCULAR HGB CONC 37.4 g/dL (32.0-36.0); MEAN CORPUSCULAR VOLUME 106.5 fL (81.0-99.0); MEAN PLATELET VOLUME 10.7 fL (7.9-10.8); RED BLOOD COUNT 3.54 10^6/uL (4.20-5.40); WHITE BLOOD COUNT 6.5 x10^3/uL (4.8-10.8)
[2023-02-06 21:00] LABS: ALBUMIN 4.6 g/dL (3.2-5.5); ALBUMIN/GLOBULIN RATIO 1.4 (1.0-2.2); BILIRUBIN,TOTAL 0.4 mg/dL (0.2-1.0); CALCIUM 9.9 mg/dL (8.5-10.3); CREATININE 0.6 mg/dL (0.6-1.3); TOTAL PROTEIN 7.8 g/dL (6.4-8.9)
== END 2023-02-06 23:59 | disposition home or self-care (01) ==
LOC: LAB.R 08:00
PROVIDERS: ATTEND Internal Medicine Rheumatology
DX: D86.84 Sarcoid pyelonephritis (principal)
CPT/HCPCS: 80053; 85025; 85027; 85651; 86140

== ENCOUNTER 2023-06-19 08:00 | Outpatient (CLI) | payer BC ==
[2023-06-19 20:06] LABS: ALBUMIN 4.5 g/dL (3.2-5.5); ALBUMIN/GLOBULIN RATIO 1.5 (1.0-2.2); BILIRUBIN,TOTAL 0.6 mg/dL (0.2-1.0); CALCIUM 10.2 mg/dL (8.5-10.3); CREATININE 0.7 mg/dL (0.6-1.3); CRP - C-REACTIVE PROTEIN 0.8 mg/dL (<0.5); POTASSIUM 4.4 mmol/L (3.5-4.5); TOTAL PROTEIN 7.6 g/dL (6.4-8.9)
[2023-06-19 20:08] LABS: BASOPHILS # (AUTO) 0.1 10^3/uL (0.0-0.1); BASOPHILS % (AUTO) 0.8 %; EOSINOPHILS # (AUTO) 0.2 10^3/uL (0.0-0.7); EOSINOPHILS % (AUTO) 2.7 %; HCT - HEMATOCRIT 45.9 % (37.0-47.0); HGB - HEMOGLOBIN 15.6 g/dL (12.0-16.0); LYMPHOCYTES # (AUTO) 2.7 10^3/uL (1.5-3.5); MEAN CORPUSCULAR HEMOGLOBIN 34.8 pg (27.0-31.0); MEAN CORPUSCULAR VOLUME 102.5 fL (81.0-99.0); MEAN PLATELET VOLUME 11.7 fL (7.9-10.8); MONOCYTES # (AUTO) 0.6 10^3/uL (0.0-1.0); MONOCYTES % (AUTO) 8.4 %; NEUTROPHILS # (AUTO) 3.8 10^3/uL (1.5-6.6); NEUTROPHILS % (AUTO) 51.8 %; NRBC ABSOLUTE COUNT (AUTO) 0.02 x10^3/uL; NUCLEATED RED BLOOD CELLS AUTO 0.3 /100WBC; PLT - PLATELET COUNT 298 10^3/uL (130-450); RED BLOOD COUNT 4.48 10^6/uL (4.20-5.40); RED CELL DISTRIBUTION WIDTH 13.8 % (12.0-15.0); WHITE BLOOD COUNT 7.4 x10^3/uL (4.8-10.8)
== END 2023-06-19 23:59 | disposition home or self-care (01) ==
LOC: LAB.R 08:00
PROVIDERS: ATTEND Internal Medicine Rheumatology
DX: D86.84 Sarcoid pyelonephritis (principal)
CPT/HCPCS: 80053; 85025; 85651; 86140

== ENCOUNTER 2023-08-11 12:10 | Outpatient (CLI) | payer BC ==
--- NOTE | 2023-08-11 13:29 | XRAY Report ---
PROCEDURE: Chest 2V INDICATIONS: PAIN TECHNIQUE: 2 views of the chest were acquired. COMPARISON: None. FINDINGS: Surgical changes and devices: None. Lungs and pleura: Moderate right pneumothorax. Mild right basal opacities. Mediastinum: Normal heart size Bones and chest wall: Degenerative changes. Possible right rib fractures. IMPRESSION: Moderate right pneumothorax. Possible right rib fractures. Ordering provider contacted and advised pa katie to proceed to emergency department by fish technologist Reviewed by: Jb Culp MD on 08/11/2023 1:27 PM PDT Approved by: Jb Culp MD on 08/11/2023 1:27 PM PDT Station ID: [id number]
--- NOTE | 2023-08-12 06:49 | XRAY Report ---
PROCEDURE: Cervical Spine 2-3V INDICATIONS: PAIN TECHNIQUE: 3 view(s) of the cervical spine were acquired. COMPARISON: None. FINDINGS: Bones: No fractures or dislocations to the T1 level. The lateral masses of C1 appear intact on the odontoid view. No suspicious bony lesions. Mild disc height loss at C5-6, C4-5, C3-4. Mild multilev el facet arthrosis, most prominent at C4-5, C5-6, C6-7. Soft tissues: No prevertebral soft tissue swelling. IMPRESSION: Mild, multilevel degenerative disc disease and diffuse facet arthrosis. Reviewed by: Nabeel Reeves MD on 08/12/2023 6:48 AM PDT Approved by: Nabeel Reeves MD on 08/12/2023 6:48 AM PDT Station ID: [id number]
--- NOTE | 2023-08-12 06:52 | XRAY Report ---
PROCEDURE: Shoulder 2+V RT INDICATIONS: PAIN TECHNIQUE: 3 views of the shoulder were acquired. COMPARISON: Same day chest CT and chest radiograph FINDINGS: Bones: No fractures or dislocations. No suspicious bony lesions. Visualized ribs appear intact. Soft tissues: No suspicious soft tissue calcifications. The visualized lungs are within normal limi ts. Moderate right-sided pneumothorax. IMPRESSION: No acute bony abnormality. Moderate right-sided pneumothorax. Subsequent film/CT demonstrate chest tube placement. Reviewed by: Nabeel Reeves MD on 08/12/2023 6:50 AM PDT Approved by: Nabeel Reeves MD on 08/12/2023 6:50 AM PDT Station ID: [id number]
== END 2023-08-11 12:11 | disposition home or self-care (01) ==
LOC: DI 12:10
PROVIDERS: ATTEND Physician Assistant
DX: S27.0XXA Traumatic pneumothorax, initial encounter (principal); M50.31 Other cervical disc degeneration, high cervical region; M50.321 Other cervical disc degeneration at C4-C5 level; M50.322 Other cervical disc degeneration at C5-C6 level; M47.812 Spondylosis without myelopathy or radiculopathy, cervical region; M25.511 Pain in right shoulder

== ENCOUNTER 2023-08-11 12:49 | Emergency (ER) | payer BC ==
[2023-08-11 13:30] LABS: BASOPHILS # (AUTO) 0.1 10^3/uL (0.0-0.1); BASOPHILS % (AUTO) 0.5 %; EOSINOPHILS % (AUTO) 0.1 %; HGB - HEMOGLOBIN 13.1 g/dL (12.0-16.0); LYMPHOCYTES # (AUTO) 1.4 10^3/uL (1.5-3.5); LYMPHOCYTES % (AUTO) 13.7 %; MEAN CORPUSCULAR HEMOGLOBIN 34.6 pg (27.0-31.0); MEAN CORPUSCULAR HGB CONC 33.6 g/dL (32.0-36.0); MEAN CORPUSCULAR VOLUME 102.9 fL (81.0-99.0); MEAN PLATELET VOLUME 10.8 fL (7.9-10.8); MONOCYTES # (AUTO) 1.1 10^3/uL (0.0-1.0); MONOCYTES % (AUTO) 10.4 %; NEUTROPHILS # (AUTO) 7.5 10^3/uL (1.5-6.6); PLT - PLATELET COUNT 272 10^3/uL (130-450); RED BLOOD COUNT 3.79 10^6/uL (4.20-5.40); WHITE BLOOD COUNT 10.1 x10^3/uL (4.8-10.8)
--- NOTE | 2023-08-11 13:33 | ED Physician Documentation ---
History of Present Illness - Stated complaint Stated Complaint: RIB PX - Chief complaint Chief Complaint: Trauma Ch/Bk - Additonal information Additional information: 47-year-old female with history of type 1 diabetes, hypercholesterolemia, GERD,, spontaneous deafness in 1 year, anxiety, sarcodoisis, neurosarcoidosis, endometriosis presents emergency department from the walk-in clinic for severe right rib pain. Patient says that she has frequent falls and weakness in her upper extremity with a lot of neuropathy and so falling is not out of the norm for her says that she is not entirely sure what happened yesterday but she somehow lost her balance in the bathroom and fell onto the toilet hitting her right ribs. She went to the walk-in clinic today where they completed plain films and she was found to have a possible pneumo with multiple rib fractures. She said she was having a hard time sleeping last night denies shortness of breath but there is pain with inhalation.She denies losing consciousness denies hitting her head. 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, Other HEENT: Other Derm: Other - Present Medications Home Medications: Ambulatory Orders Medication Instructions Recorded Confirmed Insulin Lispro [Humalog] See Protocol SUBQ DAILY 10/23/16 10/25/16 Propranolol HCl 10 mg PO DAILY 10/23/16 10/25/16 Sertraline [Zoloft] 50 mg PO DAILY 10/23/16 10/25/16 traZODone [Desyrel] 50 mg PO DAILY 10/23/16 10/25/16 oxyCODONE/ACET 5/325 Prepack 4 1 tab PO Q6H PRN 10/25/16 10/25/16 [PERCOCET 5 MG/325 MG Prepack 4] Ondansetron Odt [Zofran Odt] 4 mg TL Q6H PRN #10 tablet 03/05/22 predniSONE [Deltasone] 60 mg PO DAILY 7 Days #21 tablet 03/05/22 Ondansetron Odt [Zofran] 4 mg TL Q6H PRN #10 tablet 10/18/22 Promethazine Supp [Phenergan Supp] 25 mg MA Q6H PRN #4 supp 10/18/22 - Allergies Allergies/Adverse Reactions: Allergies Allergy/AdvReac Type Severity Reaction Status Date / Time adhesive AdvReac Rash Verified 08/11/23 12:54 hydrocodone bitartrate * AdvReac Itching Verified 08/11/23 12:54 [From Vicodin] - Social History Does the pt smoke?: No Smoking Status: Never smoker Does the pt drink ETOH?: Yes Does the pt have substance abuse?: No Substance Use and Type: Marijuana - Immunizations Immunizations are current?: Yes - POLST Patient has POLST: No PD ED PE NORMAL - Vitals Vital signs reviewed: Yes - General General: Alert and oriented X 3, Well developed/nourished, Other - HEENT HEENT: PERRL, Moist mucous membranes - Neck Neck: Supple, no meningeal sign, No bony TTP - Cardiac Cardiac: RRR - Respiratory Respiratory: No respiratory distress, Other (diminished right breath sounds) - Abdomen Abdomen: Normal bowel sounds, Soft - Derm Derm: Normal color, Warm and dry, No rash, Other (no brusing, no crepitus) - Extremities Extremities: No edema, No calf tenderness / cord - Free text exam Free text exam: severe left rib/tenderness Results - Vitals Vitals: Vital Signs - 24 hr 08/11/23 08/11/23 08/11/23 12:55 14:00 14:30 Temperature 36.5 C Heart Rate 78 85 82 Respiratory 16 24 20 Rate Blood Pressure 145/65 H 154/73 H 156/73 H O2 Saturation 100 98 98 If not protocol : Oxygen Flow, liters/minute 08/11/23 08/11/23 08/11/23 15:00 15:30 16:00 Temperature Heart Rate 91 84 90 Respiratory 21 16 21 Rate Blood Pressure 182/86 H 172/73 H 174/84 H O2 Saturation 98 98 98 If not protocol : Oxygen Flow, liters/minute 08/11/23 08/11/23 08/11/23 16:30 16:36 16:39 Temperature 36.4 C L Heart Rate 90 104 H 103 H Respiratory 19 15 13 Rate Blood Pressure 143/85 H 116/94 H 139/105 H O2 Saturation 98 100 98 If not protocol : Oxygen Flow, liters/minute 08/11/23 08/11/23 08/11/23 16:44 16:50 17:00 Temperature Heart Rate 103 H 96 95 Respiratory 20 15 20 Rate Blood Pressure 131/71 H 146/62 H 168/105 H O2 Saturation 99 100 99 If not protocol 1 : Oxygen Flow, liters/minute 08/11/23 08/11/23 08/11/23 17:30 18:00 18:30 Temperature Heart Rate 98 98 96 Respiratory 18 18 19 Rate Blood Pressure 162/91 H 162/91 H 177/75 H O2 Saturation 99 99 98 If not protocol : Oxygen Flow, liters/minute 08/11/23 08/11/23 19:00 19:30 Temperature Heart Rate 105 H 106 H Respiratory 17 18 Rate Blood Pressure 171/72 H 173/76 H O2 Saturation 97 97 If not protocol : Oxygen Flow, liters/minute Oxygen O2 Source Room air - Labs Labs: Laboratory Tests 08/11/23 08/11/23 13:26 13:26 WBC 10.1 RBC 3.79 L Hgb 13.1 Hct 39.0 MCV 102.9 H MCH 34.6 H MCHC 33.6 RDW 13.0 Plt Count 272 MPV 10.8 Neut # (Auto) 7.5 H Lymph # (Auto) 1.4 L [place] # (Auto) 1.1 H Eos # (Auto) 0.0 Baso # (Auto) 0.1 Absolute Nucleated RBC 0.00 Nucleated RBC % 0.0 Sodium 136 Potassium 4.1 Chloride 100 L Carbon Dioxide 23 Anion Gap 13.0 BUN 12 Creatinine 0.6 Estimated GFR (MDRD) 108 Glucose 234 H Calcium 9.6 Magnesium 1.6 L Total Bilirubin 1.1 H AST 103 H ALT 68 H Alkaline Phosphatase 110 Total Protein 7.2 Albumin 4.2 Globulin 3.0 Albumin/Globulin Ratio 1.4 Lipase < 10 L PD Medical Decision Making - ED course ED course: 47-year-old female presents emergency department for right rib pain shortness of breath from urgent care she was found to have a pneumothorax with multiple rib fractures. Labs are complete for further evaluation and she has no anemia MCV is elevated 102.9 which appears to be chronic for the patient. For pneumothorax Dr. Carter completed the procedure see his procedure note for further evaluation but patient got a pigtail chest tube to the right side. CT was then completed of her chest and she was found to have 6 rib fractures 2 of them being displaced at ribs 6 and 7. After chest tube was complete CT scan showed that the lung expanded quite nicely. Head CT does not show any acute abnormalities or findings. Given that patient has 6 rib fracture she was in auto excepted [facility] report given to Dr. Musa and patient was life flighted to [facility] for further management. We attempted to control her pain with 1 mg of Dilaudid multiple times but had a very difficult time controlling her pain here in the emergency department. Patient is agreeable for transfer and understands why she is going to [facility]. Departure - Departure Disposition: 02 Transfer Acute Care Hosp Clinical Impression: Multiple rib fractures, Pneumothorax, Chest tube in place Forms: PCP List Discharge Date/Time: 08/11/23 20:10
[2023-08-11] MEDS: HYDROmorphone 0.5 MG/0.5 ML SYRINGE IVP STA ×2 (13:40→15:00)
[2023-08-11] MEDS: ONDANSETRON 4 MG/2 ML VIAL IVP STA (13:40)
[2023-08-11 13:46] LABS: ALBUMIN 4.2 g/dL (3.2-5.5); ALBUMIN/GLOBULIN RATIO 1.4 (1.0-2.2); ALKALINE PHOSPHATASE 110 IU/L (42-121); ALT ALANINE AMINOTRANSFERASE 68 IU/L (10-60); AST ASPARTATE AMINOTRANSFERASE 103 IU/L (10-42); BILIRUBIN,TOTAL 1.1 mg/dL (0.2-1.0); BUN - BLOOD UREA NITROGEN 12 mg/dL (6-20); CALCIUM 9.6 mg/dL (8.5-10.3); CARBON DIOXIDE - CO2 23 mmol/L (21-32); CHLORIDE 100 mmol/L (101-111); CREATININE 0.6 mg/dL (0.6-1.3); GFR - MDRD 108 (>89); GLUCOSE 234 mg/dL (74-104); LIPASE < 10 U/L (11-82); MAGNESIUM 1.6 mg/dL (1.7-2.3); POTASSIUM 4.1 mmol/L (3.5-4.5); SODIUM 136 mmol/L (135-145); TOTAL PROTEIN 7.2 g/dL (6.4-8.9)
[2023-08-11] MEDS: KETOROLAC 15 MG/ML VIAL IVP STA (14:53)
[2023-08-11] MEDS: HYDROmorphone 1 MG/ML CARPUJECT IVP STA ×3 (14:53→18:41)
[2023-08-11] MEDS: PROPOFOL 200 MG/20 ML VIAL IVP STA (16:34)
[2023-08-11] MEDS ORDERED: iohexoL-300 100 ML VIAL ONE (17:15)
--- NOTE | 2023-08-11 17:16 | XRAY Report ---
PROCEDURE: Chest 1V INDICATIONS: chest tube placement verification TECHNIQUE: One view of the chest was acquired. COMPARISON: 08/11/2023. FINDINGS: Surgical changes and devices: Right-sided chest tube in place Lungs and pleura: Significant decrease in size of right pneumothorax. Minimal to no residual pneumoth orax. No pleural effusions. Lungs are clear. Mediastinum: Mediastinal contours appear normal. Heart size is normal. Bones and chest wall: No suspicious bony lesions. Overlying soft tissues appear unremarkable. IMPRESSION: Status post right-sided chest tube placement with significant decrease in size right pneumothorax. Mi nimal to no residual pneumothorax is seen. Reviewed by: Garo Mena MD on 08/11/2023 4:15 PM LIZA Approved by: Garo Mena MD on 08/11/2023 4:15 PM LIZA Station ID: [id number]
--- NOTE | 2023-08-11 18:04 | CT Report ---
PROCEDURE: Head WO INDICATIONS: GLF TECHNIQUE: Noncontrast 4.5 mm thick angled axial sections acquired from the foramen magnum to the vertex. For r adiation dose reduction, the following was used: automated exposure control, adjustment of mA and/or kV according to patient size. COMPARISON: None. FINDINGS: Image quality: Excellent. CSF spaces: Basal cisterns are patent. No extra-axial fluid collections. Ventricles are normal in size and shape. Brain: No midline shift. No intracranial masses or hemorrhage. Loaiza-white matter interface is norm al. Skull and face: Calvarium and visualized facial bones are intact, without suspicious lesions. Sinuses: Visualized sinuses and mastoids are clear. IMPRESSION: No acute intracranial pathology. Reviewed by: Garo Mena MD on 08/11/2023 5:03 PM LIZA Approved by: Garo Mena MD on 08/11/2023 5:03 PM LIZA Station ID: [id number]
[2023-08-11] MEDS: iohexoL-300 100 ML VIAL IVP ONE (18:07)
--- NOTE | 2023-08-11 18:08 | CT Report ---
PROCEDURE: Chest W INDICATIONS: pneumo, new chest tube, multiple rb fxs CONTRAST: 100ml omni 300 TECHNIQUE: After the administration of intravenous contrast, a CT scan of the chest was performed. Images were recorded and evaluated at appropriate window settings. Reformats: axial MIP of the chest, coronal and sagittal. For radiation dose reduction, the following was used: automated exposure control, adjustme nt of mA and/or kV according to patient size. COMPARISON: None. FINDINGS: Image quality: Diagnostic. Chest wall and lower neck: No thyroid nodule which requires sonographic follow up. No breast mass. No axillary or supraclavicular adenopathy by size. Lungs and pleura: Right-sided chest tube in place. Trace right pneumothorax. Right lower lobe and mid dle lobe subsegmental atelectasis versus contusion. Mediastinum: Heart size is normal. Moderate coronary calculations. No pericardial effusion. No large vessel abnormality. No mediastinal adenopathy by size criteria. Multiple calcified mediastinal lymph nodes. Bones: Displaced right posterior seventh, eighth, ninth, 10th and 11th rib fractures. Mildly displace d right anterolateral 6 and seventh rib fractures. Upper Abdomen: Geographic decreased attenuation in the left hepatic lobe, consistent with hepatic allison atosis. IMPRESSION: 1.Multiple right-sided rib fractures as above. 2.Right-sided chest tube in place with trace right pneumothorax. 3.Right middle and lower lobe subsegmental atelectasis versus contusion. Reviewed by: Garo Mena MD on 08/11/2023 5:07 PM LIZA Approved by: Garo Mena MD on 08/11/2023 5:07 PM [place] Station ID: [id number]
--- NOTE | 2023-08-11 19:10 | ED Physician Documentation ---
ED Addendum - Addendum Addendum: 08/11/23 19:06 The patient was being seen by our nurse practitioner. She has rib fractures and a pneumothorax. Her injuries were last evening and her oxygenation and heart rate and blood pressure are good so nonemergent but certainly urgent placement of a chest tube. As such it could be done with consent and under sedation and local anesthetic. The patient states she does gets sedation with even dentistry and so did ask for that. We did provide IV pain medicine with Dilaudid and Toradol. She is given IV fluids. Vitals are stable. I did do a discussion with the patient of risks benefits and alternatives and the care team. She was in consent for both placement of the chest tube and for procedural sedation. With the appropriate personnel in place we did provide procedural sedation and I placed a pigtail chest tube on the right side with good output of air. There was a slight output of blood but that then cleared after only perhaps 5 to 10 mL. I reclear the tubing and got good airflow out and with bubbling in the chest tube drain. We did 200 mg of propofol and she still was moderately awake. I did provide ample amount of local anesthetic at the insertion site. She was still having some pain and we repeated the pain medicine after the procedure. Procedure: Procedural sedation the patient was given propofol 200 mg total for sedation and angst anxiolysis during placement of a chest tube. Present was RT, nursing and myself. Appropriate preparations were done with patient on the monitor and oximeter to her as well as a capnography or. Her Mallampati was 1. ASA score of 1. She had not eaten for about 6 hours and was a small meal at that time. IV access as well as suction material and [id number] were all at bedside. The patient had reasonable and sedation with the medication. Postprocedure chest x-ray showed fairly good expansion of the pneumothorax and the chest tube in the proper position. Further care was continued by the nurse practitioner. The patient was then to go to CT for better evaluation of the fractures. It was felt that placement of the chest tube was appropriate prior to CT scan to ensure adequacy of expansion, vital signs etc. See separate procedure notes as well. 08/11/23 19:13 Procedures - Chest Tube Chest Tube Location: mid axillary line Size of [place] Tube (cm): 9 (pigtail) Chest Tube Procedure: betadine prep, sterile drapes applied, sterile dressing applied Anesthesia: 0.5% Sensorcaine Volume Anesthetic (ccs): 8 Grace of Air Alfalfa: Yes Number of Attempts: 1 Tube Drainage: see nurses notes Tube Sutured to Skin: Yes Post Procedure CXR?: Yes
[2023-08-11 19:52] VITALS: BP 173/76; O2SAT 97
== END 2023-08-11 20:10 | disposition short-term general hospital (02) ==
LOC: ED 12:49
DX: S22.41XA Multiple fractures of ribs, right side, initial encounter for closed fracture (principal); S27.0XXA Traumatic pneumothorax, initial encounter; W19.XXXA Unspecified fall, initial encounter; Z91.81 History of falling; Y92.002 Bathroom of unspecified non-institutional (private) residence as the place of occurrence of the external cause
CPT/HCPCS: 32551; 36415; 70450; 71045; 71260; 80053; 83690; 83735; 85025; 93005; 96374; 96376; 99152; 99284; 99285; J1170; Q9967

== ENCOUNTER 2023-09-12 08:00 | Outpatient (CLI) | payer BC ==
[2023-09-12 20:04] LABS: ALBUMIN 4.6 g/dL (3.2-5.5); ALBUMIN/GLOBULIN RATIO 1.6 (1.0-2.2); ALKALINE PHOSPHATASE 103 IU/L (42-121); ALT ALANINE AMINOTRANSFERASE 21 IU/L (10-60); AST ASPARTATE AMINOTRANSFERASE 31 IU/L (10-42); BILIRUBIN,TOTAL 0.3 mg/dL (0.2-1.0); BUN - BLOOD UREA NITROGEN 7 mg/dL (6-20); CALCIUM 9.7 mg/dL (8.5-10.3); CARBON DIOXIDE - CO2 28 mmol/L (21-32); CHLORIDE 104 mmol/L (101-111); CREATININE 0.6 mg/dL (0.6-1.3); CRP - C-REACTIVE PROTEIN < 0.5 mg/dL (<0.5); GFR - MDRD 108 (>89); GLUCOSE 78 mg/dL (74-104); POTASSIUM 4.2 mmol/L (3.5-4.5); SODIUM 140 mmol/L (135-145); TOTAL PROTEIN 7.4 g/dL (6.4-8.9)
[2023-09-12 20:36] LABS: HCT - HEMATOCRIT 40.4 % (37.0-47.0); MEAN CORPUSCULAR HEMOGLOBIN 34.4 pg (27.0-31.0); MEAN CORPUSCULAR HGB CONC 34.7 g/dL (32.0-36.0); MEAN CORPUSCULAR VOLUME 99.3 fL (81.0-99.0); MEAN PLATELET VOLUME 11.2 fL (7.9-10.8); RED BLOOD COUNT 4.07 10^6/uL (4.20-5.40); RED CELL DISTRIBUTION WIDTH 12.1 % (12.0-15.0); WHITE BLOOD COUNT 8.2 x10^3/uL (4.8-10.8)
== END 2023-09-12 23:59 | disposition home or self-care (01) ==
LOC: LAB.R 08:00
PROVIDERS: ATTEND Internal Medicine Rheumatology
DX: D86.84 Sarcoid pyelonephritis (principal)
CPT/HCPCS: 80053; 85027; 85651; 86140